=== PATIENT | male | born 1950 | race Caucasian/White ===

== ENCOUNTER 2019-10-17 09:31 | Day surgery (SDC) | payer MEDICARE ==
[~2019-10-17] VITALS: Ht 175.3 cm; Wt 68.2 kg
[~2019-10-17 09:31] MED LIST: AMLO10 PO; NAPR220; OMEP20ER
== END 2019-10-17 13:04 | disposition home or self-care (01) ==
LOC: ORSCSDS 09:31
PROVIDERS: Student in an Organized Health Care Education/Training Program
PROC: 0DBL8ZX Excision of Transverse Colon, Via Natural or Artificial Opening Endoscopic, Diagnostic (ICD-10-PCS; principal; 2019-10-17 11:45)
PROC: 0DBP8ZX Excision of Rectum, Via Natural or Artificial Opening Endoscopic, Diagnostic (ICD-10-PCS; principal; 2019-10-17 11:45)
DX: Z12.11 Encounter for screening for malignant neoplasm of colon (principal); D12.3 Benign neoplasm of transverse colon; K62.1 Rectal polyp; K64.8 Other hemorrhoids; K57.30 Diverticulosis of large intestine without perforation or abscess without bleeding; I10 Essential (primary) hypertension; Z79.899 Other long term (current) drug therapy
CPT/HCPCS: 88305; J2704; J7120

== ENCOUNTER → 2020-08-07 | Outpatient (CLI) | payer MEDICARE | LOC: LAB SHORT 07:52 → PLD 07:52 | DX: L57.0 Actinic keratosis (principal) | CPT/HCPCS: 88305; 88312 ==

== ENCOUNTER 2024-08-04 12:47 | Day surgery (SDC) | payer OTHER ==
[~2024-08-04] VITALS: Ht 172.7 cm; Wt 65.3 kg
[~2024-08-04 12:47] MED LIST changes: +FOLI1 PO; +Lactated Ringer's 1,000 ML IV ONE; +Propecia1 MG PO; +propofoL 50 ML IV ONE
[2024-08-04] MEDS ORDERED: B-12500 MC2 PO (13:13)
[2024-08-04] MEDS ORDERED: Lactated Ringer's 1,000 ML IV ONE (13:32)
[2024-08-04 15:03] VITALS: BP 129/75
== END 2024-08-04 15:15 | disposition home or self-care (01) ==
LOC: ORSCSDS 12:47
PROVIDERS: Specialist
PROC: 0D758DZ Dilation of Esophagus with Intraluminal Device, Via Natural or Artificial Opening Endoscopic (ICD-10-PCS; principal; 2024-08-04 14:15)
PROC: 0DJD8ZZ Inspection of Lower Intestinal Tract, Via Natural or Artificial Opening Endoscopic (ICD-10-PCS; principal; 2024-08-04 14:15)
PROC: 0DB58ZX Excision of Esophagus, Via Natural or Artificial Opening Endoscopic, Diagnostic (ICD-10-PCS; principal; 2024-08-04 14:15)
PROC: 0DB98ZX Excision of Duodenum, Via Natural or Artificial Opening Endoscopic, Diagnostic (ICD-10-PCS; principal; 2024-08-04 14:15)
PROC: 0DB68ZX Excision of Stomach, Via Natural or Artificial Opening Endoscopic, Diagnostic (ICD-10-PCS; principal; 2024-08-04 14:15)
DX: D50.9 Iron deficiency anemia, unspecified (principal); K29.50 Unspecified chronic gastritis without bleeding; B96.81 Helicobacter pylori [H. pylori] as the cause of diseases classified elsewhere; K22.2 Esophageal obstruction; K44.9 Diaphragmatic hernia without obstruction or gangrene; K20.90 Esophagitis, unspecified without bleeding; R13.10 Dysphagia, unspecified; R10.30 Lower abdominal pain, unspecified; K64.8 Other hemorrhoids; K57.30 Diverticulosis of large intestine without perforation or abscess without bleeding; K21.9 Gastro-esophageal reflux disease without esophagitis; Z86.0101 Personal history of adenomatous and serrated colon polyps; I10 Essential (primary) hypertension; Z85.46 Personal history of malignant neoplasm of prostate; Z85.89 Personal history of malignant neoplasm of other organs and systems; Z79.899 Other long term (current) drug therapy; Z87.891 Personal history of nicotine dependence
CPT/HCPCS: 88305; 88342; C1769; J2704; J7120

== ENCOUNTER 2024-09-21 07:27 | Day surgery (SDC) | payer OTHER ==
[~2024-09-21] VITALS: Ht 172.7 cm; Wt 67.6 kg
[~2024-09-21 07:27] MED LIST changes: +B-12500 MC2 PO; -Lactated Ringer's 1,000 ML IV ONE; -propofoL 50 ML IV ONE
[2024-09-21] MEDS ORDERED: propofoL 50 ML IV ONE (08:22)
[2024-09-21] MEDS ORDERED: Lactated Ringer's 1,000 ML IV ONE ×2 (08:22→08:49)
[2024-09-21] MEDS ORDERED: Lidocaine 2% 5 ML SDV ONE (08:22)
[2024-09-21] MEDS ORDERED: Lidocaine HCl/Pf 1% 5 ML VIAL ONE (08:22)
[2024-09-21 09:32] VITALS: BP 146/86
== END 2024-09-21 09:32 | disposition home or self-care (01) ==
LOC: ORSCSDS 07:27
PROVIDERS: Internal Medicine Gastroenterology
PROC: 0DJD8ZZ Inspection of Lower Intestinal Tract, Via Natural or Artificial Opening Endoscopic (ICD-10-PCS; principal; 2024-09-21 08:45)
DX: D50.9 Iron deficiency anemia, unspecified (principal); K57.30 Diverticulosis of large intestine without perforation or abscess without bleeding; Z80.0 Family history of malignant neoplasm of digestive organs; Z86.0101 Personal history of adenomatous and serrated colon polyps; Z86.0102 Personal history of hyperplastic colon polyps; Z85.46 Personal history of malignant neoplasm of prostate; Z85.89 Personal history of malignant neoplasm of other organs and systems; I10 Essential (primary) hypertension; K21.9 Gastro-esophageal reflux disease without esophagitis; Z79.899 Other long term (current) drug therapy; Z87.891 Personal history of nicotine dependence
CPT/HCPCS: J2003; J2704; J7120

== ENCOUNTER 2024-10-14 09:41 | Day surgery (SDC) | payer OTHER ==
[2024-10-14] MEDS ORDERED: Lidocaine HCl 1% 20 ML MDV ONE (13:13)
== END 2024-10-14 23:00 | disposition home or self-care (01) ==
LOC: WOUND 09:41
DX: S70.02XD Contusion of left hip, subsequent encounter (principal); T79.2XXD Traumatic secondary and recurrent hemorrhage and seroma, subsequent encounter; I10 Essential (primary) hypertension; M19.90 Unspecified osteoarthritis, unspecified site; X58.XXXD Exposure to other specified factors, subsequent encounter
CPT/HCPCS: 10140; A6213; G0463

== ENCOUNTER 2024-11-04 06:13 | Day surgery (SDC) | payer OTHER | END 2024-11-04 23:00 | disposition home or self-care (01) | LOC: WOUND 06:13 | DX: S70.02XD Contusion of left hip, subsequent encounter (principal); T79.2XXD Traumatic secondary and recurrent hemorrhage and seroma, subsequent encounter | CPT/HCPCS: G0463 ==

== ENCOUNTER → 2024-12-02 | Outpatient (CLI) | payer OTHER ==
[2024-12-05 15:08] LABS: Stool Occult Bld Immuno 1 Negative (NEGATIVE)
== END ==
LOC: LAB SHORT 08:00 → LAB 08:00
PROVIDERS: Physician Assistant Medical
DX: D50.9 Iron deficiency anemia, unspecified (principal)
CPT/HCPCS: G0328